=== PATIENT | female | born 1935 | race Caucasian/White ===

== ENCOUNTER 2016-11-20 15:05 | Inpatient (IN) | payer MEDICARE ==
[~2016-11-20] VITALS: Ht 170.2 cm; Wt 77.6 kg
[~2016-11-20 15:05] MED LIST: ASPIR 8181 MG PO; CALCIUM600 MG PO; DAILY MULTIPLE1 EAC1 PO; ELIQUIS5 MG PO; EPIPEN 2-P0.3 MG/0.3 INJ; FISH OIL 1,0001 EACH PO; ISOSORBIDE MONO60 MG PO; KEFLEX500 MG PO; LASIX20 MG PO; LATANOPROST2.5 ML OP; MELOXICAM7.5 MG PO; MESTINON60 MG PO; METOPROLOL TART25 MG PO; MULTAQ 400 MG400 MG PO; NITROSTAT0.4 MG SL; PRILOSEC OTC20 MG PO; PROAIR HFA8.5 GM INH; SYSTANE 0.3-0.440 ML OP; VENTOLIN/PROVE0.5 ML NEB; VITAMIN D2000 UNI1 PO
[2016-11-20 17:32] LABS: HEMOGLOBIN 12.3 gm/dl (12.3-15.3); RED BLOOD COUNT 3.95 M/UL (4.00-5.10)
[2016-11-20] MEDS ORDERED: ZADITOR5 ML OP (23:35)
[2016-11-20] MEDS ORDERED: SYSTANE 0.3-0.1 EACH OP (23:37)
[2016-11-20] MEDS ORDERED: MELOXICAM7.5 MG PO (23:39)
[2016-11-20] MEDS ORDERED: RESTORIL 15 MG15 MG PO (23:43)
[2016-11-21 06:00] LABS: RED BLOOD COUNT 3.85 M/UL (4.00-5.10); WHITE BLOOD COUNT 5.5 K/UL (4.5-11.0)
[2016-11-22 09:20] LABS: HEMOGLOBIN 12.7 gm/dl (12.3-15.3); RED BLOOD COUNT 4.08 M/UL (4.00-5.10); WHITE BLOOD COUNT 7.8 K/UL (4.5-11.0)
[2016-11-23 06:01] LABS: HEMOGLOBIN 12.6 gm/dl (12.3-15.3); RED BLOOD COUNT 4.02 M/UL (4.00-5.10); WHITE BLOOD COUNT 7.6 K/UL (4.5-11.0)
[2016-11-24 06:07] LABS: RED BLOOD COUNT 3.05 M/UL (4.00-5.10)
[2016-11-24 06:08] LABS: HEMOGLOBIN 9.4 gm/dl (12.3-15.3)
[2016-11-25 05:46] LABS: HEMOGLOBIN 9.1 gm/dl (12.3-15.3); RED BLOOD COUNT 2.89 M/UL (4.00-5.10)
[2016-11-25 05:47] LABS: WHITE BLOOD COUNT 10.7 K/UL (4.5-11.0)
[2016-11-25] MEDS ORDERED: PROTONIX40 MG PO (10:55)
[2016-11-26 06:28] LABS: RED BLOOD COUNT 2.57 M/UL (4.00-5.10); WHITE BLOOD COUNT 8.6 K/UL (4.5-11.0)
[2016-11-26 06:50] LABS: BUN/CREATININE RATIO 13 (0-10)
[2016-11-26] MEDS ORDERED: TYLENOL W/CODEIN1 E1 PO (14:29)
== END 2016-11-26 15:59 | disposition home health service (06) | DRG 940 ==
LOC: ER1 15:05 → M/S 16:40 → ZEROF 16:40 → M/S 22:51
PROVIDERS: Emergency Medicine; Family Medicine; ADMIT Orthopaedic Surgery
PROC: 0SPA0JZ Removal of Synthetic Substitute from Right Hip Joint, Acetabular Surface, Open Approach (ICD-10-PCS; 2016-11-23)
PROC: 0SP909Z Removal of Liner from Right Hip Joint, Open Approach (ICD-10-PCS; 2016-11-23)
PROC: 0SUA09Z Supplement Right Hip Joint, Acetabular Surface with Liner, Open Approach (ICD-10-PCS; 2016-11-23)
PROC: 0SRA0JA Replacement of Right Hip Joint, Acetabular Surface with Synthetic Substitute, Uncemented, Open Approach (ICD-10-PCS; principal; 2016-11-23 14:45)
DX: T84.020D Dislocation of internal right hip prosthesis, subsequent encounter (principal); I47.1 Supraventricular tachycardia; M24.451 Recurrent dislocation, right hip; Z96.641 Presence of right artificial hip joint; K21.9 Gastro-esophageal reflux disease without esophagitis; G70.00 Myasthenia gravis without (acute) exacerbation; M54.9 Dorsalgia, unspecified; M32.9 Systemic lupus erythematosus, unspecified; M19.90 Unspecified osteoarthritis, unspecified site; J45.909 Unspecified asthma, uncomplicated; I73.00 Raynaud's syndrome without gangrene; Z95.0 Presence of cardiac pacemaker; Z90.710 Acquired absence of both cervix and uterus; Z90.81 Acquired absence of spleen; Z96.651 Presence of right artificial knee joint; Z86.718 Personal history of other venous thrombosis and embolism; Z95.828 Presence of other vascular implants and grafts; I25.111 Atherosclerotic heart disease of native coronary artery with angina pectoris with documented spasm; Z79.899 Other long term (current) drug therapy; Z79.82 Long term (current) use of aspirin; Z79.01 Long term (current) use of anticoagulants; I10 Essential (primary) hypertension
CPT/HCPCS: 36415; 51702; 71010; 72170; 73502; 76000; 80048; 80053; 85025; 85027; 87086; 93005; 94640; 94664; 96374; 96375; 97110; 97116; 97530; 99285; C1713; G0378; J0690; J1200; J2250; J2270; J2405; J2795; J3010; J7120

== ENCOUNTER → 2021-09-05 | Outpatient (CLI) | payer MEDICARE ==
[~2021-09-05] VITALS: Ht 165.1 cm; Wt 74.4 kg
[~2021-09-05] MED LIST changes: +BENTYL 10MG CAP10 MG PO; +CORDARONE 200M200 MG PO; +LISINOPRIL20 MG PO; +PROTONIX40 MG PO; +RANEXA500 MG PO; +RESTORIL 15 MG15 MG PO; +SENNA LAX8.6 MG PO; +SYSTANE 0.3-0.1 EACH OP; +TYLENOL W/CODEIN1 E1 PO; +ZADITOR5 ML OP; +ZOFRAN 4 MG TAB4 MG PO
== END ==
LOC: EROP 13:46
DX: Z23 Encounter for immunization (principal); U07.1 COVID-19; J45.909 Unspecified asthma, uncomplicated; I13.0 Hypertensive heart and chronic kidney disease with heart failure and stage 1 through stage 4 chronic kidney disease, or unspecified chronic kidney disease; N18.9 Chronic kidney disease, unspecified; I50.9 Heart failure, unspecified; D84.9 Immunodeficiency, unspecified
CPT/HCPCS: M0247; Q0247

== ENCOUNTER → 2022-05-03 | Outpatient (CLI) | payer MEDICARE | LOC: EXRD 10:02 | DX: M81.0 Age-related osteoporosis without current pathological fracture (principal) | CPT/HCPCS: 77080 ==